=== PATIENT | male | born 1960 | race African-American/Black ===

== ENCOUNTER 2018-01-13 21:29 | Emergency (ER) | payer BC ==
[2018-01-13 22:02] LABS: BILIRUBIN,URINE NEGATIVE (NEG); CLARITY,URINE CLOUDY; COLOR,URINE AMBER; GLUCOSE,URINE NEGATIVE (NEG); NITRITE,URINE NEGATIVE (NEG); PROTEIN,URINE 30 mg/dL (NEG-TRACE); UROBILINOGEN,URINE 0.2 mg/dL (0.2 mg/dL)
[2018-01-13 22:09] LABS: BACTERIA,URINE MODERATE /HPF (0-FEW); RBC,URINE TNTC /HPF (0-2)
[2018-01-13] MEDS: IV NORMAL SALINE 1000ML BAG 1,000 ML IV (22:10)
[2018-01-13] MEDS: ONDANSETRON PF 4 MG/2 ML VIAL. IV (22:11)
[2018-01-13] MEDS: KETOROLAC 30 MG/ML INJ. IV (22:11)
[2018-01-13 22:17] LABS: ADD MAN DIFF? NO
[2018-01-13 22:19] LABS: BASO % 1 % (0-3); EOS # 0.1 x10^3/uL (0.0-0.7); EOS % 2 % (0-3); HEMATOCRIT 40.2 % (39.0-53.0); HEMOGLOBIN 13.5 g/dL (13.0-17.5); LYMPH # 1.1 x10^3/uL (1.0-4.8); LYMPH % 22 % (24-48); MEAN CORPUSCULAR HEMOGLOBIN 32 pg (25-35); MEAN CORPUSCULAR HGB CONC 34 g/dL (31-37); MEAN CORPUSCULAR VOLUME 94 fL (79-100); MONO # 0.6 x10^3/uL (0.0-1.1); MONO % 11 % (0-9); NEUT # 3.4 x10^3uL (1.8-7.7); NEUT % 65 % (31-73); PLATELET COUNT 262 x10^3/uL (140-400); RED BLOOD COUNT 4.29 x10^6/uL (4.30-5.70); RED CELL DISTRIBUTION WIDTH 13.1 % (11.5-14.5); WHITE BLOOD COUNT 5.2 x10^3/uL (4.0-11.0)
[2018-01-13 22:34] LABS: ANION GAP 7 (6-14); BLOOD UREA NITROGEN 24 mg/dL (8-26); BUN/CREATININE RATIO 17 (6-20); CALCIUM 9.3 mg/dL (8.5-10.1); CARBON DIOXIDE 28 mmol/L (21-32); CHLORIDE 104 mmol/L (98-107); CREATININE 1.4 mg/dL (0.7-1.3); GLUCOSE 119 mg/dL (70-99); SODIUM 139 mmol/L (136-145)
[2018-01-13 22:36] LABS: ALBUMIN 3.9 g/dL (3.4-5.0); ALBUMIN/GLOBULIN RATIO 1.1 (1.0-1.7); ALK PHOS 57 U/L (46-116); ALT (SGPT) 43 U/L (16-63); AST (SGOT) 37 U/L (15-37); TOTAL BILIRUBIN 0.3 mg/dL (0.2-1.0); TOTAL PROTEIN 7.6 g/dL (6.4-8.2)
[2018-01-13] MEDS: TAMSULOSIN 0.4 MG CAP.ER.24H. PO (23:19)
[2018-01-14] MEDS ORDERED: cefTRIAXone IV Push 1 GM VIAL. IVP (22:00)
== END 2018-01-13 23:28 | disposition home or self-care (01) ==
LOC: ER 21:29
DX: K57.90 Diverticulosis of intestine, part unspecified, without perforation or abscess without bleeding (principal); N20.1 Calculus of ureter; N23 Unspecified renal colic; M51.36 Other intervertebral disc degeneration, lumbar region; R82.71 Bacteriuria
CPT/HCPCS: 36415; 74176; 80053; 81001; 85025; 87086; 96365; 96375; 99285-25; J0690; J1885; J2405; J7030